=== PATIENT | female | born 2000 | race Caucasian/White ===

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

== ENCOUNTER 2018-12-24 12:19 | Emergency (ER) | payer OTHER ==
--- OUTSIDE RECORDS SUMMARY | 2018-12-24 12:23 | XMS REPORT ---
:2000 Author Organization [facility] Address [address] [place] [address] Care Team Providers Name Role Phone Denice Aguilar Unavailable Unavailable PROBLEMS Type Condition ICD9-CM Code [id number] Code Onset Condition SNOMED Code Dates Status Problem Irregular N92.6 Active 58104956 menstruation, unspecified Problem Family history Z80.0 Active 476369848 of malignant neoplasm of digestive organs Problem Oligomenorrhea, N91.5 Active 65371090 unspecified ALLERGIES No Known Allergies ENCOUNTERS Encounter Location Date Diagnosis [facility] Oct, Encounter for OBGYN [facility], gynecological examination [place] [id number] (general) (routine) without abnormal findings Z01.419 ; Encounter for surveillance of contraceptive pills Z30.41 ; Family history of malignant neoplasm of digestive organs Z80.0 and Encounter for screening for infections with a predominantly sexual mode of transmission Z11.3 [facility] 103 Sep, Encounter for surveillance OBGYN [facility], of contraceptive pills [place] [id number] Z30.41 [facility] 103 July, OBGYN [place], [place] [id number] [facility] 103 Jun, Dysuria R30.0 and Acute OBGYN [facility], vaginitis N76.0 [place] [id number] [facility] 103 Sep, Encounter for OBGYN [facility], gynecological examination [place] [id number] (general) (routine) without abnormal findings Z01.419 ; Encounter for screening for infections with a predominantly sexual mode of transmission Z11.3 ; Encounter for surveillance of contraceptive pills Z30.41 and Family history of malignant neoplasm of digestive organs Z80.0 [facility] 103 Sep, Encounter for [facility], gynecological examination [place] [id number] (general) (routine) without abnormal findings Z01.419 ; Irregular menstruation, unspecified N92.6 and Encounter for screening for infections with a predominantly sexual mode of transmission Z11.3 [facility] 103 Apr, Oligomenorrhea, [facility], unspecified N91.5 [place] [id number] [facility] [place] [facility] 103 Sep, [place] [id number] [facility] 103 Jan, [place] [id number] [facility] 103 Jan, [facility], unspecified N91.5 [place] [id number] [facility] [place] [facility] 103 Jan, Primary oligomenorrhea [facility], N91.3 [place] [id number] [facility] 103 Dec, [place] [id number] [facility] [place] [facility] 103 Dec, [place] [id number] [facility] 103 Dec, [place] [id number] [facility] 103 Dec, [place] [id number] [facility] 103 Dec, [facility] N76.0 [facility] oligomenorrhea [place] [id number] N91.3 IMMUNIZATIONS No Known Immunizations SOCIAL HISTORY Never Assessed REASON FOR REFERRAL FUNCTIONAL STATUS PLAN OF CARE Activity Details Follow Up 1 Year for annual exam Reason: Pending Test CTNG by Swab VITAL SIGNS Height 65 in 2018-11-02 Weight 150 lbs 2018-11-02 BMI 24.96 kg/m2 2018-11-02 Blood pressure systolic 98 mm Hg 2018-11-02 Blood pressure diastolic 62 mm Hg 2018-11-02 MEDICATIONS Medication Instructions Dosage Frequency Start End Date Duration Status Date Aviane 20 orally once a day 1 tab(s) 24h Oct, day(s) Active mcg-100 mcg 2018 PROCEDURES No Known procedures RESULTS No Results REASON FOR VISIT annual Insurance Providers [facility] Member Patient Patient Patient Patient Patient Subscriber Subscriber Subscriber Group Insurance Plan Plan Plan Plan ID Relationship Address Phone Name Date of ID Name Date of No Type Insurance Insurance Insurance Coverage to Subscriber Address Phone Name Dates [employer] 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
--- OUTSIDE RECORDS SUMMARY | 2018-12-24 12:23 | XMS REPORT ---
:2000 Author Organization [facility] Address [address] [place] [address] Care Team Providers Name Role Phone Denice Aguilar Unavailable Unavailable PROBLEMS Type Condition ICD9-CM Code [id number] Code Onset Condition SNOMED Code Dates Status Problem Irregular N92.6 Active 77439761 menstruation, unspecified Problem Family history Z80.0 Active 099087581 of malignant neoplasm of digestive organs Problem Oligomenorrhea, N91.5 Active 21716984 unspecified ALLERGIES No Information ENCOUNTERS Encounter Location Date Diagnosis [facility] 103 Oct, Encounter for surveillance OBGYN [facility] of contraceptive pills [place] [id number] Z30.41 [facility] 103 Oct, Encounter for OBGYN [facility], gynecological examination [place] [id number] (general) (routine) without abnormal findings Z01.419 ; Encounter for surveillance of contraceptive pills Z30.41 ; Family history of malignant neoplasm of digestive organs Z80.0 and Encounter for screening for infections with a predominantly sexual mode of transmission Z11.3 [facility] 103 Sep, Encounter for surveillance OBGYN [facility], of contraceptive pills [place] [id number] Z30.41 [facility] 103 July, OBGYN [place], [place] [id number] [facility] 103 Jun, Dysuria R30.0 and Acute OBGYN [facility], vaginitis N76.0 [place] [id number] [facility] 103 Sep, [facility] [place] [id number] (general) (routine) without abnormal findings Z01.419 ; Encounter for screening for infections with a predominantly sexual mode of transmission Z11.3 ; Encounter for surveillance of contraceptive pills Z30.41 and Family history of malignant neoplasm of digestive organs Z80.0 [facility] 103 Sep, [facility] examination [place] [id number] (general) (routine) without abnormal findings Z01.419 ; Irregular menstruation, unspecified N92.6 and Encounter for screening for infections with a predominantly sexual mode of transmission Z11.3 [place] [facility] 103 Apr, [facility], [facility], unspecified N91.5 [place] [id number] [place] [facility] 103 Sep, [place] [id number] [facility] [facility] 103 Jan, [place] [id number] [facility] 103 Jan, [facility], [facility], unspecified N91.5 [place] [id number] [place] [facility] 103 Jan, [facility], N91.3 [place] [id number] [place] [facility] 103 Dec, [place] [id number] [facility] [facility] 103 Dec, [place] [id number] [facility] [facility] 103 Dec, [place] [id number] [facility] 103 Dec, [place] [id number] [facility] 103 Dec, Acute vaginitis N76.0 and OBGYN [facility], Primary oligomenorrhea [place] [id number] N91.3 IMMUNIZATIONS No Known Immunizations SOCIAL HISTORY Never Assessed REASON FOR REFERRAL FUNCTIONAL STATUS PLAN OF CARE VITAL SIGNS MEDICATIONS Medication Instructions Dosage Frequency Start End Date Duration Status Date Aviane 20 orally once a day 1 tab(s) 24h Oct, day(s) Active mcg-100 mcg 2018 PROCEDURES No Known procedures RESULTS No Results REASON FOR VISIT Rx Insurance Providers [facility] Member Patient Patient Patient Patient Patient Subscriber Subscriber Subscriber Group Insurance Plan Plan Plan Plan ID Relationship Address Phone Name Date of ID Name Date of No Type Insurance Insurance Insurance Coverage to Subscriber Address Phone Name Dates [employer] 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
--- NOTE | 2018-12-24 12:39 | UC ---
Lower Extremity/Ankle HPI - HPI Summary HPI Summary: 18 yo female presents with foot injury. 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 She lifted a 10 year old to demonstrate a move and the student landed forcefully on pt's left foot. Bruising and swelling soon followed. Continued dancing. Pain is worse with weight bearing, but is tolerable. - History of Current Complaint Stated Complaint: FOOT INJURY Time Seen by Provider: 12/24/18 12:39 Hx Obtained From: Patient Onset/Duration: Sudden Onset Severity Initially: Moderate Severity Currently: Mild Pain Intensity: 4 Pain Scale Used: 0-10 Numeric - Allergies/Home Medications Allergies/Adverse Reactions: Allergies Allergy/AdvReac Type Severity Reaction Status Date / Time No Known Allergies Allergy Verified 12/24/18 12:35 Home Medications: Home Medications Levonorgestrel-Ethin Estradiol [Vienva-28 Tablet] 1 tab PO DAILY 12/24/18 [ History Confirmed 12/24/18] PMH/Surg Hx/FS Hx/Imm Hx - Additional Past Medical History Additional PMH: None - Surgical History Surgical History: Yes Surgery Procedure, Year, and Place: wisdom teeth - Family History Known Family History: Positive: Other - Negative: MS - Social History Alcohol Use: None Substance Use Type: None Smoking Status (MU): Never Smoked Tobacco Review of Systems All Other Systems Reviewed And Are Negative: No Constitutional: Positive: Negative Skin: Positive: Bruising - left foot Respiratory: Positive: Negative Cardiovascular: Positive: Negative Neurovascular: Positive: Negative Musculoskeletal: Positive: Other: - Left foot pain Neurological: Positive: Negative Psychological: Positive: Negative Physical Exam - Summary Physical Exam Summary: GENERAL: NAD. WDWN. No pain distress. SKIN: No rashes, sores, lesions, or open wounds. CHEST: No accessory muscle use. Breathing comfortably and in no distress. CV: Pulses intact PT and DP. Cap refill <2seconds MSK: LEFT FOOT: 5th and 4th toe MTP with mild edema and ecchymosis. Mild TTP here. FROM without pain. NEURO: Alert. Sensations intact and symmetric B/L LEs PSYCH: Age appropriate behavior. Triage Information Reviewed: Yes Vital Signs: Vital Signs: Temp Pulse Resp BP Pulse Ox 99 F 77 18 124/69 99 12/24/18 12:36 12/24/18 12:36 12/24/18 12:36 12/24/18 12:36 12/24/18 12:36 Vital Signs Reviewed: Yes Diagnostics - Radiology XR Radiology Interpretation Completed By: Radiologist Summary of Radiographic Findings: IMPRESSION: NO ACUTE OSSEOUS INJURY. IF SYMPTOMS PERSIST, RECOMMEND REPEAT IMAGING. Lower Extremity Course/Dx - Course Course Of Treatment: XR as above. Discussed with pt. Suspect contusion. Advised to RICE and f/u prn - Differential Dx/Diagnosis Provider Diagnosis: Foot contusion Discharge ED - Sign-Out/Discharge Documenting (check all that apply): Patient Departure All imaging exams completed and their final reports reviewed: Yes - Discharge Plan Condition: Stable Disposition: HOME Patient Education Materials: Foot Contusion (ED) Referrals: Rubia Walter DO [Primary Care Provider] - Additional Instructions: If you develop a fever, shortness of breath, chest pain, new or worsening symptoms - please call your PCP or go to the ED immediately. Your X-Ray did not show any fractures today 1) Rest, Ice, and elevate you foot to decrease pain and swelling - Billing Disposition and Condition Condition: STABLE Disposition: Home
[2018-12-24 12:42] VITALS: BP 124/69
== END 2018-12-24 14:12 | disposition home or self-care (01) ==
LOC: UCEAST 12:19
DX: S90.32XA Contusion of left foot, initial encounter (principal); W50.0XXA Accidental hit or strike by another person, initial encounter; Y93.41 Activity, dancing; Y92.9 Unspecified place or not applicable
CPT/HCPCS: 99211; G0463